=== PATIENT | female | born 1950 | race Two or more races ===

== ENCOUNTER 2023-12-23 14:03 | Inpatient (IN) | payer OTHER, MEDICAID ==
[~2023-12-23] VITALS: Ht 165.1 cm; Wt 73.7 kg
[2023-12-23 15:02] LABS: Basophils # (auto) 0.1 10 ^3/uL (0-0.2); Eosinophils # (auto) 0.2 10 ^3/uL (0-0.8); Hematocrit 32.1 % (36.0-46.0); Neutrophils # (auto) 4.1 10 ^3/uL (1.6-8.6); Red Blood Cells 3.98 10^6/uL (4.0-5.20); Red Cell Distribution Width 17.9 % (11.8-14.3)
[2023-12-23 15:04] LABS: Basophils % (auto) 0.9 % (0.0-2.0); Eosinophils % (auto) 2.8 % (0.0-7.0); Lymphocytes # (auto) 1.6 10 ^3/uL (0.4-5.4); Mean Corpuscular Hemoglobin 25.2 pg (28.0-32.0); Mean Corpuscular Hgb Conc. 31.3 g/dL (32.0-36.0); Mean Corpuscular Volume 80.5 fL (80.0-100.0); Monocytes % (auto) 14.7 % (0.0-12.0); Neutrophils % (auto) 58.6 % (37.0-80.0); Nucleated Red Blood Cells % 0.1 %
[2023-12-23 15:12] LABS: Chloride 103 mmol/L (98-107); Potassium 5.4 mmol/L (3.5-5.1); Sodium 136 mmol/L (136-145)
[2023-12-23 15:13] LABS: Anion Gap 8 (5-15); Calcium 9.1 mg/dL (8.7-10.4); Carbon Dioxide 25 mmol/L (20-30)
[2023-12-23 15:18] LABS: BUN/Creatinine Ratio 5.6 (10.0-20.0); Blood Urea Nitrogen 51 mg/dL (9-23); Glucose 117 mg/dL (74-106)
[2023-12-23] MEDS: SODIUM ZIRCONIUM CYCL 10 GM PAK PO ONE (16:14)
[2023-12-23] MEDS: FUROSEMIDE 20 MG/2 ML VIAL IV ONE (16:14)
[2023-12-23] MEDS: CALCIUM GLUC 1,000mg/50ml-NS 50 ML IV ONE (16:15)
[2023-12-23 17:31] VITALS: PULSE 68; RESP 19; O2SAT 91
[2023-12-23 19:45] VITALS: PULSE 68; RESP 19; O2SAT 91
[2023-12-23] MEDS ORDERED: ONDANSETRON HCL 4 MG/2 ML VIAL IV PRN (23:30)
[2023-12-23] MEDS ORDERED: HYDROcodone-ACET 5/325MG TAB PO PRN (23:30)
[2023-12-23] MEDS ORDERED: NITROGLYCERIN 0.4 MG SL TAB SL PRN (23:30)
[2023-12-23] MEDS ORDERED: MORPHINE SULFATE INJ 2 MG/ml SYRG IV PRN (23:30)
[2023-12-23] MEDS ORDERED: ALBUTEROL SULF 2.5 MG/0.5ML(0.5%) NEB SOLN NEB PRN (23:30)
[2023-12-23] MEDS ORDERED: IPRATROPIUM BROM 0.5 MG/2.5ML INH SOL NEB PRN (23:30)
[2023-12-23] MEDS ORDERED: ACETAMINOPHEN 325 MG TAB PO PRN (23:30)
[2023-12-23 23:32] VITALS: O2SAT 93
[2023-12-23 23:40] VITALS: BP 134/55; PULSE 70; RESP 18; TEMP 97.8; O2SAT 93
[2023-12-24] VITALS (13 sets, daily range): BP systolic 145–166; BP diastolic 43–70; PULSE 78–87; RESP 16–20; TEMP 97.8–99; O2SAT 94–100
[2023-12-24] MEDS: hydrALAZINE HCL 20 MG/ML VL IV PRN (02:14)
[2023-12-24] MEDS ORDERED: DEXTROSE (50%) 50ML SYRG IV PRN (03:30)
[2023-12-24 04:16] LABS: Basophils # (auto) 0.1 10 ^3/uL (0-0.2); Eosinophils # (auto) 0.2 10 ^3/uL (0-0.8); Hemoglobin 10.2 g/dL (12.2-16.2); Lymphocytes # (auto) 1.7 10 ^3/uL (0.4-5.4); Neutrophils # (auto) 4.9 10 ^3/uL (1.6-8.6)
[2023-12-24 04:18] LABS: Basophils % (auto) 1.1 % (0.0-2.0); Eosinophils % (auto) 2.9 % (0.0-7.0); Lymphocytes % (auto) 21.5 % (10.0-50.0); Mean Corpuscular Hemoglobin 25.1 pg (28.0-32.0); Mean Corpuscular Hgb Conc. 31.7 g/dL (32.0-36.0); Monocytes # (auto) 1.1 10 ^3/uL (0-1.3); Monocytes % (auto) 13.3 % (0.0-12.0); Neutrophils % (auto) 61.2 % (37.0-80.0); Red Blood Cells 4.05 10^6/uL (4.0-5.20); Red Cell Distribution Width 18.1 % (11.8-14.3)
[2023-12-24 04:24] LABS: Chloride 103 mmol/L (98-107); Potassium 5.1 mmol/L (3.5-5.1); Sodium 135 mmol/L (136-145)
[2023-12-24 04:25] LABS: Anion Gap 8 (5-15); Carbon Dioxide 24 mmol/L (20-30)
[2023-12-24 04:26] LABS: Calcium 8.9 mg/dL (8.7-10.4)
[2023-12-24 04:30] LABS: BUN/Creatinine Ratio 4.8 (10.0-20.0); Blood Urea Nitrogen 47 mg/dL (9-23); Glucose 128 mg/dL (74-106)
[2023-12-24 04:33] LABS: COVID19 ANTIGEN SOFIA FIA POSITIVE (NEGATIVE)
[2023-12-24] MEDS ORDERED: ASPI-498 OR (05:48)
[2023-12-24] MEDS ORDERED: INSLANTI SC (05:48)
[2023-12-24] MEDS ORDERED: METO25TA93 PO (05:48)
[2023-12-24] MEDS ORDERED: B-CO-5 OR (05:48)
[2023-12-24] MEDS ORDERED: MET50T PO (05:48)
[2023-12-24] MEDS ORDERED: FERR325T24 PO (05:48)
[2023-12-24] MEDS ORDERED: LOS25T (05:48)
[2023-12-24] MEDS ORDERED: FURO20TA3 PO (05:48)
[2023-12-24] MEDS ORDERED: AMLO1TAB22 PO ×2 (05:48)
[2023-12-24] MEDS: ACCU-CHEK COMFORT CURVE STRIP VI SCH (06:29)
[2023-12-24] MEDS: InsuLIN REG 1unit/0.01ml Soln (100units/ml) SC SCH (06:29)
[2023-12-24] MEDS: ASPirin 81 mg TAB PO SCH (08:34)
[2023-12-24] MEDS: HEPARIN SODIUM (PORCINE) 5000 UNITS/ML 1ML VIAL SC SCH (08:35)
[2023-12-24] MEDS: ATORVASTATIN 20 MG TAB PO SCH ×2 (22:10→23:00)
[2023-12-24] MEDS ORDERED: LORazepam 2MG/ML-1ML VIAL IV PRN (23:00)
[2023-12-25] VITALS (8 sets, daily range): BP systolic 113–163; BP diastolic 58–96; PULSE 75–94; RESP 16–18; TEMP 97.5–98.4; O2SAT 93–99
[2023-12-25 07:13] LABS: Basophils # (auto) 0.1 10 ^3/uL (0-0.2); Basophils % (auto) 1.3 % (0.0-2.0); Eosinophils # (auto) 0.2 10 ^3/uL (0-0.8); Hemoglobin 10.3 g/dL (12.2-16.2); Lymphocytes # (auto) 1.5 10 ^3/uL (0.4-5.4); Monocytes # (auto) 0.8 10 ^3/uL (0-1.3); Neutrophils # (auto) 3.3 10 ^3/uL (1.6-8.6)
[2023-12-25 07:15] LABS: Eosinophils % (auto) 3.3 % (0.0-7.0); Hematocrit 32.4 % (36.0-46.0); Mean Corpuscular Hemoglobin 25.2 pg (28.0-32.0); Mean Corpuscular Hgb Conc. 31.8 g/dL (32.0-36.0); Mean Corpuscular Volume 79.2 fL (80.0-100.0); Monocytes % (auto) 14.4 % (0.0-12.0); Red Blood Cells 4.09 10^6/uL (4.0-5.20); Red Cell Distribution Width 17.5 % (11.8-14.3); White Blood Cell 5.9 10^3/uL (4.4-10.8)
[2023-12-25 07:33] LABS: Anion Gap 14 (5-15); Carbon Dioxide 23 mmol/L (20-30); Chloride 101 mmol/L (98-107); Potassium 4.7 mmol/L (3.5-5.1); Sodium 138 mmol/L (136-145)
[2023-12-25 07:35] LABS: Calcium 9.1 mg/dL (8.7-10.4)
[2023-12-25 07:39] LABS: BUN/Creatinine Ratio 4.7 (10.0-20.0); Glucose 103 mg/dL (74-106)
[2023-12-25 07:42] LABS: Blood Urea Nitrogen 31 mg/dL (9-23)
[2023-12-25] MEDS ORDERED: LOSA-534 PO (08:37)
[2023-12-25] MEDS ORDERED: METO25TA5 PO (08:37)
[2023-12-25] MEDS ORDERED: INSU100I70 SC (08:37)
[2023-12-25] MEDS ORDERED: FERR324T4 PO (08:37)
[2023-12-25] MEDS ORDERED: ATOR40TA52 PO (08:37)
[2023-12-25] MEDS ORDERED: HYDR50TA47 PO (08:37)
[2023-12-25] MEDS ORDERED: ISOS1TAB28 PO (08:37)
[2023-12-25] MEDS ORDERED: FURO40TA4 PO (08:37)
[2023-12-25] MEDS ORDERED: AMLO1TAB23 PO (08:37)
[2023-12-25] MEDS: METOPROLOL TARTRATE 25 MG TAB PO SCH (11:50)
[2023-12-25] MEDS: FUROSEMIDE 40 MG TAB PO SCH (11:50)
[2023-12-25] MEDS: amLODIPine BESYLATE 5 MG TAB PO SCH (11:51)
[2023-12-25] MEDS: hydrALAZINE HCL 25 MG TAB PO SCH (13:32)
[2023-12-25] MEDS ORDERED: ACYCLOVIR 5MG/KG Q8HR PER RX 0 ML IV SCH (18:00)
[2023-12-25] MEDS: ACYCLOVIR SOD IV SCH (20:22)
[2023-12-25] MEDS: D5W 5% IV SCH (20:22)
[2023-12-25 22:48] LABS: Urine Bacteria None Seen /hpf (None Seen)
[2023-12-25 23:05] LABS: Urine Blood TRACE /uL (Negative); Urine Clarity Clear (Clear); Urine Color Light-Yellow (Yellow); Urine Protein, UAD 3+ (Negative); Urine Specific Gravity 1.012 (1.001-1.035); Urine Urobilinogen Normal (Negative); Urine WBC 40 /hpf (0 - 5); Urine pH 7.5 (5.0-9.0)
[2023-12-26] VITALS (10 sets, daily range): BP systolic 105–156; BP diastolic 30–77; PULSE 70–77; RESP 17–19; TEMP 98.2–98.7; O2SAT 91–96
[2023-12-26 05:51] LABS: Basophils # (auto) 0.1 10 ^3/uL (0-0.2); Eosinophils # (auto) 0.2 10 ^3/uL (0-0.8); Hematocrit 31.2 % (36.0-46.0); Neutrophils # (auto) 3.4 10 ^3/uL (1.6-8.6); White Blood Cell 6.5 10^3/uL (4.4-10.8)
[2023-12-26 05:52] LABS: Chloride 102 mmol/L (98-107); Sodium 137 mmol/L (136-145)
[2023-12-26 05:53] LABS: Anion Gap 9 (5-15); Calcium 9.4 mg/dL (8.7-10.4); Carbon Dioxide 26 mmol/L (20-30)
[2023-12-26 05:55] LABS: Eosinophils % (auto) 2.4 % (0.0-7.0); Hemoglobin 10.1 g/dL (12.2-16.2); Lymphocytes # (auto) 1.8 10 ^3/uL (0.4-5.4); Lymphocytes % (auto) 28.4 % (10.0-50.0); Mean Corpuscular Hemoglobin 25.5 pg (28.0-32.0); Mean Corpuscular Hgb Conc. 32.2 g/dL (32.0-36.0); Mean Corpuscular Volume 79.3 fL (80.0-100.0); Monocytes % (auto) 15.6 % (0.0-12.0); Neutrophils % (auto) 52.6 % (37.0-80.0); Red Blood Cells 3.94 10^6/uL (4.0-5.20); Red Cell Distribution Width 18.1 % (11.8-14.3)
[2023-12-26 05:58] LABS: BUN/Creatinine Ratio 5.3 (10.0-20.0); Glucose 112 mg/dL (74-106)
[2023-12-26 06:05] LABS: Blood Urea Nitrogen 45 mg/dL (9-23)
[2023-12-26 09:38] LABS: Hepatitis B Surface Antibody Positive (Negative)
[2023-12-26 09:50] LABS: Hepatitis B Surface Antigen Negative (Negative)
[2023-12-26] MEDS ORDERED: SODIUM CHL 0.9% 1000 ML BAG XX ONE (11:00)
[2023-12-26] MEDS ORDERED: ACYC400T16 PO (16:52)
[2023-12-26] MEDS: EPOETIN ALFA-EPBX 10,000 UNIT/1ML VIAL SC ONE (21:35)
[2023-12-27] VITALS (7 sets, daily range): BP systolic 129–151; BP diastolic 57–62; PULSE 79–89; RESP 18; TEMP 97.3–98.2; O2SAT 94–95
[2023-12-27 05:52] LABS: Basophils # (auto) 0.1 10 ^3/uL (0-0.2); Eosinophils # (auto) 0.1 10 ^3/uL (0-0.8); Lymphocytes # (auto) 1.8 10 ^3/uL (0.4-5.4); Monocytes # (auto) 0.9 10 ^3/uL (0-1.3); Neutrophils # (auto) 3.2 10 ^3/uL (1.6-8.6); Nucleated Red Blood Cells % 0.1 %
[2023-12-27 05:56] LABS: Basophils % (auto) 1.2 % (0.0-2.0); Eosinophils % (auto) 2.2 % (0.0-7.0); Hematocrit 31.8 % (36.0-46.0); Hemoglobin 10.4 g/dL (12.2-16.2); Lymphocytes % (auto) 29.5 % (10.0-50.0); Mean Corpuscular Hemoglobin 25.8 pg (28.0-32.0); Mean Corpuscular Hgb Conc. 32.6 g/dL (32.0-36.0); Mean Corpuscular Volume 79.1 fL (80.0-100.0); Neutrophils % (auto) 52.1 % (37.0-80.0); Red Blood Cells 4.01 10^6/uL (4.0-5.20); Red Cell Distribution Width 17.9 % (11.8-14.3); White Blood Cell 6.1 10^3/uL (4.4-10.8)
[2023-12-27 06:11] LABS: Anion Gap 7 (5-15); Carbon Dioxide 28 mmol/L (20-30); Chloride 101 mmol/L (98-107); Potassium 4.6 mmol/L (3.5-5.1); Sodium 136 mmol/L (136-145)
[2023-12-27 06:12] LABS: Calcium 9.6 mg/dL (8.7-10.4)
[2023-12-27 06:17] LABS: BUN/Creatinine Ratio 4.2 (10.0-20.0); Glucose 127 mg/dL (74-106)
[2023-12-27 06:20] LABS: Blood Urea Nitrogen 28 mg/dL (9-23)
== END 2023-12-27 18:45 | disposition home or self-care (01) | DRG 64 ==
LOC: ER 14:03 → EDBD 14:03 → TELE 23:30 → TELE-EAST 12-24 04:40
PROVIDERS: ADMIT Nurse Practitioner Family; ATTEND Nurse Practitioner Family
PROC: 5A1D70Z Performance of Urinary Filtration, Intermittent, Less than 6 Hours Per Day (ICD-10-PCS; principal; 2023-12-24)
PROC: 5A1D70Z Performance of Urinary Filtration, Intermittent, Less than 6 Hours Per Day (ICD-10-PCS; 2023-12-26)
DX: I63.9 Cerebral infarction, unspecified (principal); J12.82 Pneumonia due to coronavirus disease 2019; U07.1 COVID-19; N18.6 End stage renal disease; I13.2 Hypertensive heart and chronic kidney disease with heart failure and with stage 5 chronic kidney disease, or end stage renal disease; N25.81 Secondary hyperparathyroidism of renal origin; T85.611A Breakdown (mechanical) of intraperitoneal dialysis catheter, initial encounter; I69.354 Hemiplegia and hemiparesis following cerebral infarction affecting left non-dominant side; E87.1 Hypo-osmolality and hyponatremia; E87.5 Hyperkalemia; B02.9 Zoster without complications; D63.1 Anemia in chronic kidney disease; E11.22 Type 2 diabetes mellitus with diabetic chronic kidney disease; E11.42 Type 2 diabetes mellitus with diabetic polyneuropathy; E78.5 Hyperlipidemia, unspecified; I25.10 Atherosclerotic heart disease of native coronary artery without angina pectoris; I50.9 Heart failure, unspecified; Z83.3 Family history of diabetes mellitus; Z85.528 Personal history of other malignant neoplasm of kidney; Z86.19 Personal history of other infectious and parasitic diseases; I25.2 Old myocardial infarction; Z79.4 Long term (current) use of insulin; Z79.82 Long term (current) use of aspirin; Z79.899 Other long term (current) drug therapy; Z88.0 Allergy status to penicillin; Z99.2 Dependence on renal dialysis; Y84.1 Kidney dialysis as the cause of abnormal reaction of the patient, or of later complication, without mention of misadventure at the time of the procedure; Y92.89 Other specified places as the place of occurrence of the external cause
CPT/HCPCS: 36415; 70450; 71045; 80048; 81001; 82962; 84484; 85025; 86706; 87081; 87340; 87426; 90935; 93306; 93886; 96365; 96375; G0378; J1642; J1815; J7060

== ENCOUNTER 2024-06-08 06:17 | Day surgery (SDC) | payer OTHER, MEDICAID ==
[~2024-06-08] VITALS: Ht 165.1 cm; Wt 71.2 kg
[~2024-06-08 06:17] MED LIST: ACYC400T16 PO; AMLO1TAB23 PO; ASPI-498 OR; ATOR40TA52 PO; B-CO-5 OR; FERR324T4 PO; FURO40TA4 PO; HYDR50TA47 PO; INSLANTI SC; ISOS1TAB28 PO; LOSA-534 PO
[2024-06-08] MEDS ORDERED: BUPIVACAINE 0.5% P/F INJ 10 ML VIAL ONE (06:34)
[2024-06-08] MEDS ORDERED: LIDOCAINE 1% HCL (LOCAL ANESTH.) INJ 20ML MDV ONE (06:35)
[2024-06-08] MEDS ORDERED: HEPARIN 1,000 UNITS/ml 1ML VIAL ONE (06:35)
[2024-06-08] MEDS ORDERED: HEPARIN SODIUM (PORCINE) 5000 UNITS/ML 1ML VIAL ONE ×2 (06:37→06:53)
[2024-06-08] MEDS ORDERED: SUCCINYLCHOLINE CHLORIDE 20 MG/ML 10ML VIAL IV ONE (06:42)
[2024-06-08] MEDS ORDERED: fentaNYL CITRATE 100 MCG/2 ML VL ONE ×2 (06:46→07:43)
[2024-06-08] MEDS ORDERED: PROPOFOL 10 MG/ML 20 ML IV ONE (06:48)
[2024-06-08] MEDS ORDERED: ceFAZolin 2 GM/D5W100ml 100 ML IV ONE (07:14)
[2024-06-08] MEDS: HEPARIN SODIUM (PORCINE) 5000 UNITS/ML 1ML VIAL SC ONE (07:15)
[2024-06-08] MEDS ORDERED: ONDANSETRON HCL 4 MG/2 ML VIAL ONE (07:46)
[2024-06-08] MEDS ORDERED: SUGAMMADEX 200mg/2ml Vial (100MG/ML) IV ONE (08:13)
[2024-06-08 08:32] VITALS: PULSE 82; RESP 12; TEMP 97.7; O2SAT 95
[2024-06-08] MEDS ORDERED: ALBUTEROL SULF 2.5 MG/0.5ML(0.5%) NEB SOLN ONE (09:13)
[2024-06-08 09:18] VITALS: O2SAT 95
[2024-06-08] MEDS: ALBUTEROL SULF 2.5 MG/0.5ML(0.5%) NEB SOLN NEB ONE (09:18)
[2024-06-08 09:19] VITALS: PULSE 72; PULSE 75; RESP 16; O2SAT 95; O2SAT 97
[2024-06-08 09:37] VITALS: BP 141/58; PULSE 74; RESP 19; O2SAT 93
--- NOTE | 2024-06-08 11:25 | DVHOP ---
DATE OF SURGERY: 06/08/2024 PREOPERATIVE DIAGNOSIS: Malfunctioning peritoneal dialysis catheter. POSTOPERATIVE DIAGNOSIS: Malfunctioning peritoneal dialysis catheter. PROCEDURES: Laparoscopic lysis of adhesions and revision of peritoneal dialysis catheter. SURGEON: Emanuel Hayes MD BREAKDOWN MAN: None. ANESTHESIOLOGIST: Dr. Bishop. ANESTHESIA: General by means of endotracheal intubation. INTRAOPERATIVE FINDINGS: * Significant intraluminal catheter debris, fibrin/thrombus. * Adhesions involving the small bowel against the pelvic region, obliterating the pelvic cul-de-sac. * Displaced peritoneal dialysis catheter located in the mid lower abdominal region, enveloped with small bowel. ESTIMATED BLOOD LOSS: Minimal. INTRAVENOUS FLUIDS: Per anesthesia charting. Urine output not recorded given Kendrick catheter was not inserted. DRAINS: None. IMPLANTS: None. SPECIMENS: None. COMPLICATIONS: None. Procedure well tolerated and transferred to recovery room in stable condition. INDICATION FOR PROCEDURE: The patient is an unfortunate 73-year-old female with history of end-stage renal disease, previously on peritoneal dialysis, recently transitioning to hemodialysis secondary to nonfunctioning peritoneal dialysis catheter. Based on the above-mentioned information, she was recommended to undergo laparoscopic revision of the peritoneal dialysis catheter. She was made aware that intraoperative findings would dictate the end result of the procedure. The procedure, risks and benefits were explained in a detailed and extensive fashion. All questions were answered. She understood and agreed to proceed. DESCRIPTION OF PROCEDURE: The patient was taken to the operating room. She was placed in the dorsal decubitus position on the operating table. Once adequate anesthesia was achieved, both arms were tucked to her side, paying careful attention on providing adequate positioning as well as padding to prevent any potential injuries. The peritoneal dialysis catheter was inspected. The exchange tubing demonstrated significant debris within the lumen. It was immediately exchanged. The catheter was flushed under sterile conditions, completely clearing the external portion of the catheter. At this time, the abdomen and pelvis were widely prepped and draped in the usual sterile fashion, including the catheter. The catheter was excluded from the rest of the sterile field by placing the catheter on the sterile towel towards the left side of the patient, we noted to be tested later. My attention was directed towards the periumbilical region where local anesthesia consisting of 1% lidocaine with 0.5% Marcaine was infiltrated. The abdominal wall was retracted anteriorly by means of towel clamps and a Veress needle was inserted into the abdominal cavity. Pneumoperitoneum of 15 mmHg was achieved. My attention was directed towards the right upper quadrant region where local anesthesia was injected over the area of the previous scar. A 5 mm trocar was placed and a 5 mm 30-degree laparoscope was inserted into the abdominal cavity. A thorough survey of the abdominal cavity did not reveal any evidence of injury or bleeding upon entry. The Veress needle was removed under direct laparoscopic visualization. The catheter was observed to be within the lower mid abdomen, enveloped with small bowel and there was significant debris within the internal aspect of the catheter that was visualized. The internal cuff was in the peritoneal cavity. It appeared to be shaved previous to insertion. My attention was directed towards the left side of the abdomen where a 5 mm and an 8 mm trocars were placed with preemptive local anesthesia as well as under direct laparoscopic visualization. At this time, the catheter was retrieved from the mid lower abdomen and inspected, identifying a significant amount of internal debris including the distal previously nonvisualized portion of the catheter. At this time, the debris was milked distally using the Spimeige grasper, successfully removing all fibrin and thrombus from the catheter and retrieved. The catheter was forcefully flushed with sterile saline solution, demonstrating excellent patency. I changed gloves and then proceeded to place the patient in the Trendelenburg position, exposing the pelvic cul-de-sac. There were adhesions involving small intestine against the pelvic region, obliterating the pelvic cul-de-sac. The adhesions were very loose and easily dissected with EndoShears, exposing the pelvic cul-de-sac and successfully mobilizing the small bowel without injury to involved structures. The peritoneal dialysis catheter was attempted to be placed in the pelvic cul-de-sac. Unfortunately, the catheter was not of adequate length and therefore could not be placed optimally and completely within pelvic cul-de-sac. The pneumoperitoneum was evacuated and the patient was placed in the neutral position. The catheter was connected to a sterile cystoscopy line, which was in turn connected to a 1 liter of sterile saline solution. The fluid was instilled upon gravity with observing excellent flow. Once the entire liter was instilled into the abdominal cavity, the bag was placed on the floor, observing excellent return, once again without obstructive flow. Approximately 800 mL of pink fluid was obtained. This demonstrated excellent function of the peritoneal dialysis catheter. At this time, the pneumoperitoneum was achieved again and the abdominal cavity was inspected. There was no evidence of active bleeding or injury. The catheter remained in the pelvis. Pneumoperitoneum was evacuated. The laparoscopic equipment was removed from the patient. The wounds were washed and dried. The skin was closed with 4-0 Monocryl in subcuticular fashion. Sterile dressings were applied. The catheter was locked with 2500 units of heparin solution. The patient tolerated well procedure. There were no complications. She was successfully extubated in the operating room and transferred to recovery room in stable condition. MD STACEY Valencia/MARYBETH/GLORIA TID: [id number] RECEIPT: [id number]
== END 2024-06-08 09:52 | disposition home or self-care (01) ==
LOC: SUR 06:17
DX: T85.611A Breakdown (mechanical) of intraperitoneal dialysis catheter, initial encounter (principal); K66.0 Peritoneal adhesions (postprocedural) (postinfection); I12.0 Hypertensive chronic kidney disease with stage 5 chronic kidney disease or end stage renal disease; E11.22 Type 2 diabetes mellitus with diabetic chronic kidney disease; N18.6 End stage renal disease; E78.5 Hyperlipidemia, unspecified; E11.40 Type 2 diabetes mellitus with diabetic neuropathy, unspecified; I25.10 Atherosclerotic heart disease of native coronary artery without angina pectoris; I25.2 Old myocardial infarction; Z88.0 Allergy status to penicillin; Z87.891 Personal history of nicotine dependence; Z79.82 Long term (current) use of aspirin; Z79.4 Long term (current) use of insulin; Z98.41 Cataract extraction status, right eye; Z99.2 Dependence on renal dialysis; Z86.73 Personal history of transient ischemic attack (TIA), and cerebral infarction without residual deficits; Y83.8 Other surgical procedures as the cause of abnormal reaction of the patient, or of later complication, without mention of misadventure at the time of the procedure
CPT/HCPCS: 49325; 82962; 86850; 86900; 86901; J0330; J1644; J2003; J2405; J2704; J3010; J3490; J7030

== ENCOUNTER 2024-06-27 18:10 | Emergency (ER) | payer OTHER, MEDICAID ==
[~2024-06-27] VITALS: Ht 162.6 cm; Wt 75.0 kg
--- NOTE | 2024-06-27 18:48 | ED.PDOC ---
GI ASSESSMENT HPI Comments HPI: Poor Historian. 73-year-old female presents to emergency department for evaluation of her peritoneal dialysis. Peritoneal dialysis was placed last week. Has never been used at all. She had it checked this past and it was working fine. This peritoneal dialysis was placed recently at this facility. She has been receiving dialysis through her right upper chest port catheter most recently yesterday. Today she went to get her peritoneal dialysis checked and they noticed that there is blood in the tube itself. They sent her here for further evaluation. Patient is on aspirin denies any other blood thinners. Patient has minimal abdominal discomfort. Past Medcial History: Past Surgical History: REVIEW OF SYSTEMS: CONSTITUTIONAL: Denies acute: fever, diaphoresis, chills, generalized weakness. HEAD: Denies acute: headache, photophobia Eyes: Denies acute: Double vision, vision loss, eye pain, eye discharge. EARS: Denies acute: tinnitus, hearing loss, ear discharge, ear pain, THROAT: Denies acute: sore throat, swelling, difficulty swallowing , pain with swallowing, change in voice. NECK: Denies acute: neck pain, neck swelling, stiff neck. HEART: Denies acute : chest pain, palpitations, LUNGS: Denies acute: SOB, wheezing, cough, hemoptysis ABDOMEN: Denies acute: abdominal pain, Nausea, Vomiting, diarrhea, melena , hematemesis, hematochezia SKIN: Denies acute: rash, redness, lesions, itchiness. EXTREMITIES: Denies acute: calf pain, numbness, tingling, weakness, denies pain in extremity. Denies acute: Low back pain. Neuro: Denies acute: focal neurological deficit, motor or sensory focal neurological deficit, tremors, seizure like activity, confusion, dizziness, change in mental status, loss of bowel or bladder function, cauda equina like symptoms. : Denies acute: dysuria, hematuria, flank pain, increase in urinary frequency. PSYCH: Denies acute: hallucination, suicidal ideation, homicidal ideation. FEMALE: Denies acute: abnormal vaginal bleeding, foul odor, unusual discharge. PHYSICAL EXAM: General: no acute distress, awake and alert. Head: normocephalic, atraumatic. Neck: supple, trachea is midline, no swelling. Throat: Normal phonation. Eyes:, no erythema, no purulent discharge, no proptosis, no icterus. Heart: regular rate, regular rhythm, no significant murmur appreciated. Lungs: no apparent respiratory distress, Able to speak in full sentences. No wheezing, no rhonchi, no crackles. No stridors Clear to auscultation bilaterally. Abdomen: Minimal generalized tender to palpation, non distended, soft, no guard ing, no rebound, + bowel sounds. Noted peritoneal dialysis tube with some presence of dark pink/blood in the tube itself. Neuro: Awake, Alert, oriented to name, self, situation, follows commands GCS=15. Speech is normal. Skin: no petechia, no purpura, no cyanosis, non-pale, not jaundice. Lower extremities: --trace - Pitting edema no deformity, no focal swelling, no calf TTP. Makes eye contact. moves all four extremities. Face: no apparent facial droop. Ambulating in the ED independently. Chief Complaint: Tube Replacement Time Seen by MD: 18:43 Primary Care Provider: MELISSA Reviewed Notes: Nurses Notes Allergies: Coded Allergies: Penicillins (Verified Allergy, Unknown, 12/23/23) Home Meds Active Scripts Acyclovir (ZOVIRAX TABLET) 400 Mg Tb, 0.5 TAB PO BID for 6 Days, #6 TAB 3 Refills Prov:KITTY COLES MD 12/26/23 Reported Medications Prednisolone Acetate (Ophth) (Pred Forte) 1 % Sayda, 1 % OP, ML 06/27/24 Moxifloxacin Hydrochloride (Moxifloxacin) 0.5 % Leroy, 0.5 % OP, LEROY 06/27/24 Insulin Glargine (Lantus) 100 Unit/Ml Inj, 20 UNIT SC, INJ 06/05/24 Amlodipine Besylate (Amlodipine Besylate) 10 Mg Tab, 10 MG PO BID, TAB 06/05/24 Hydralazine Hcl (Hydralazine Hcl) 50 Mg Tab, 50 MG PO TID for 30 Days, MG 12/25/23 Atorvastatin Calcium (ATORVASTATIN CALCIUM) 40 Mg Tab, 1 TAB PO DAILY, #30 TAB 5 Refills 12/25/23 Isosorbide Mononitrate (Isosorbide Mononitrate Er) 30 Mg Tab, 30 MG PO for 30 Days, MG 12/25/23 Losartan Potassium (Losartan Potassium) 50 Mg Tab, 1 TAB PO DAILY, #30 TAB 5 Refills 12/25/23 Ferrous Sulfate (FERROUS SULFATE) 324 Mg Tab, 100 MG PO, TAB 12/25/23 Furosemide (Furosemide) 40 Mg Tab, 1 TAB PO DAILY, #30 TAB 5 Refills 12/25/23 Aspirin (ASPIRIN 81) 81 Mg Tab, 81 MG OR, TAB 12/24/23 B-Complex W/ C & Folic Acid (Abril-Peg) Tab, 1 OR, TAB 12/24/23 Information Source: Patient Mode of Arrival: EMS Was a procedure done? Was a procedure done?: No GI differential Dx Differential Diagnosis: Other Other Differential Diagnosis DDX include Diverticulitis, colitis, gastroenteritis, acute abdomen, SBO, enteritis, constipation, volvulus, appendicitis, Gallbladder disease, choledocolithiasis, ascending cholangitis, pancreatitis, intraAbdominal mass/neoplasm, hepatitis, UTI, pylonephritis, kidney stone, aneurysm, dissection, Inflammatory bowel disease, gastroparesis, ischemic bowel, X-Ray, Labs, Meds, VS Vital Signs Date Time Temp Pulse Resp B/P (MAP) Pulse Ox O2 Delivery O2 Flow Rate FiO2 06/27/24 21:13 18 99 Room Air* 0 21 06/27/24 19:58 85 16 165/79 (107) 96 06/27/24 19:58 85 16 96 Room Air* 0 21 06/27/24 18:10 98.5 75 18 214/93 (133) 94 Lab Test 06/27/24 19:03 Range/Units White Blood Count 8.1 4.4-10.8 10^3/uL Red Blood Count 5.33 H 4.0-5.20 10^6/uL Hemoglobin 13.1 12.2-16.2 g/dL Hematocrit 41.9 36.0-46.0 % Mean Corpuscular Volume 78.7 L 80.0-100.0 fL Mean Corpuscular Hemoglobin 24.7 L 28.0-32.0 pg Mean Corpuscular Hemoglobin Concent 31.3 L 32.0-36.0 g/dL Red Cell Distribution Width 20.9 H 11.8-14.3 % Platelet Count 284 140-450 10^3/uL Mean Platelet Volume 6.3 L 6.9-10.8 fL Neutrophils (%) (Auto) 59.7 37.0-80.0 % Lymphocytes (%) (Auto) 18.5 10.0-50.0 % Monocytes (%) (Auto) 12.1 H 0.0-12.0 % Eosinophils (%) (Auto) 8.4 H 0.0-7.0 % Basophils (%) (Auto) 1.3 0.0-2.0 % Neutrophils # (Auto) 4.8 1.6-8.6 10 ^3/uL Lymphocytes # (Auto) 1.5 0.4-5.4 10 ^3/uL Monocytes # (Auto) 1.0 0-1.3 10 ^3/uL Eosinophils # (Auto) 0.7 0-0.8 10 ^3/uL Basophils # (Auto) 0.1 0-0.2 10 ^3/uL Nucleated Red Blood Cells 0.1 % Prothrombin Time 11.0 9.3-11.8 sec Prothrombin Time INR 1.04 0.9-1.15 Activated Partial Thromboplast Time 23.3 L 24.5-34.5 SEC Sodium Level 133 L 136-145 mmol/L Potassium Level 5.4 H 3.5-5.1 mmol/L Chloride Level 95 L 98-107 mmol/L Carbon Dioxide Level 28 20-31 mmol/L Anion Gap 10 5-15 Blood Urea Nitrogen 47 H 9-23 mg/dL Creatinine 8.10 H 0.550-1.02 mg/dL Glomerular Filtration Rate Calc 5 >90 mL/min BUN/Creatinine Ratio 5.8 L 10.0-20.0 Serum Glucose 280 H 74-106 mg/dL Calcium Level 10.6 H 8.7-10.4 mg/dL Total Bilirubin < 0.2 L 0.2-1.0 mg/dL Aspartate Amino Transferase (AST) 12 L 13-40 U/L Alanine Aminotransferase (ALT) 11 7-40 U/L Alkaline Phosphatase 100 46-116 U/L Total Protein 8.2 5.7-8.2 g/dL Albumin 4.4 3.2-4.8 g/dL Time of 1ST Reevaluation: 19:13 Reevaluation 1ST: Unchanged Time of 2ND Reevaluation: 20:57 (The case was discussed with the admitting team (HPI, physical exam, labs and diagnostic tests that were available at the time of disposition, ED course, treatment plan) on the phone. They agreed to come and evaluate the patient. They spoke with the surgeon who placed the peritoneal dialysis and I was informed by the nurse practitioner that the surgeon's recommendation is outpatient follow up. They also recommend treatment for her slightly elevated potassium here in the ED. they will come and see the patient here shortly. They plan on discharging the patient. Nurse practitioner Jaron) Patient Education/Counseling: Diagnosis, Treatment Family Education/Counseling: No Family Present Comments Patient presented with the above HPI.--hyperkalemia and peritoneal dialysis problem----workup was initiated. patient was found with the above mentioned diagnosis. the following medications were ordered: please refer to order lists of meds and tests obtained by myself Dr. Contreras. Patient ED course and VS have been stabilized. Patient has been reassessed in the ED and remained in a stable condition. Pertinent incidental findings were discussed with the patient and/or family. Patient/family voices understanding and is agreeable with plan. Patient has been observed in the ED adequate length of time to insure improvement/stability. Escalation of care considered: Consideration of escalation to observation or admission Patient was ADMITTED to the medicine team for further evaluation and treatment of their presentation. However I believe the admitting team discharge the patient from the ER with outpatient follow up. All the reports of any imaging studies that were ordered by myself were reviewed by myself. Departure 1 Departure Time of Disposition: 20:51 Impression: Primary Impression: Complication of peritoneal dialysis Additional Impression: Hyperkalemia Disposition: ADMITTED INPATIENT Admit to: Tele Condition: Guarded Discharged With: Self Critical Care Note Critical Care Time?: No I personally scribed for PRABHA CONTRERAS DO ([email or web address]) on 06/27/24 at 18:47. Electronically submitted by Jazz Somers ([email or web address]). PRABHA CONTRERAS DO Jun 27, 2024 18:47
[2024-06-27 19:16] LABS: Basophils # (auto) 0.1 10 ^3/uL (0-0.2); Basophils % (auto) 1.3 % (0.0-2.0); Eosinophils # (auto) 0.7 10 ^3/uL (0-0.8); Eosinophils % (auto) 8.4 % (0.0-7.0); Hematocrit 41.9 % (36.0-46.0); Hemoglobin 13.1 g/dL (12.2-16.2); Lymphocytes # (auto) 1.5 10 ^3/uL (0.4-5.4); Lymphocytes % (auto) 18.5 % (10.0-50.0); Mean Corpuscular Hemoglobin 24.7 pg (28.0-32.0); Mean Corpuscular Hgb Conc. 31.3 g/dL (32.0-36.0); Mean Corpuscular Volume 78.7 fL (80.0-100.0); Monocytes % (auto) 12.1 % (0.0-12.0); Neutrophils # (auto) 4.8 10 ^3/uL (1.6-8.6); Neutrophils % (auto) 59.7 % (37.0-80.0); Nucleated Red Blood Cells % 0.1 %; Platelet Count (auto) 284 10^3/uL (140-450); Red Blood Cells 5.33 10^6/uL (4.0-5.20); White Blood Cell 8.1 10^3/uL (4.4-10.8)
[2024-06-27 19:17] LABS: Red Cell Distribution Width 20.9 % (11.8-14.3)
[2024-06-27] MEDS ORDERED: PRED1SUS4 OP (19:21)
[2024-06-27] MEDS ORDERED: MOXI0.5D9 OP (19:21)
[2024-06-27 19:36] LABS: INR 1.04 (0.9-1.15); Partial Thromboplastin Time 23.3 SEC (24.5-34.5)
--- NOTE | 2024-06-27 19:38 | DVH ---
EXAM: CT Abdomen and Pelvis Without Intravenous Contrast CLINICAL INDICATION: N TECHNIQUE: Axial computed tomography images of the abdomen and pelvis without intravenous contrast. This CT exam was performed using one or more of the following dose reduction techniques: automated exposure control, adjustment of the mA and/or kV according to patient size, and/or use of iterative r econstruction technique. RADIATION DOSE: CTDlvol= 8.3 mGy, DLP= 449.81 mGy-cm COMPARISON: None FINDINGS: LUNG BASES: Right base atelectasis. ABDOMEN: LIVER: Hepatomegaly. GALLBLADDER AND BILE DUCTS: Unremarkable. No calcified stones. No ductal dilation. PANCREAS: Unremarkable. No ductal dilation. SPLEEN: Unremarkable. No splenomegaly. ADRENALS: Unremarkable. No mass. KIDNEYS AND URETERS: Right nephrectomy. STOMACH AND BOWEL: Mild volume fecal retention in the colon consistent with constipation. No obstru ction. No mucosal thickening. PELVIS: APPENDIX: No findings to suggest acute appendicitis. BLADDER: Unremarkable. No stones. REPRODUCTIVE: Unremarkable as visualized. ABDOMEN and PELVIS: INTRAPERITONEAL SPACE: Unremarkable. No free air. No significant fluid collection. BONES/JOINTS: No acute fracture. No dislocation. SOFT TISSUES: Umbilical hernia containing fat. VASCULATURE: Scattered calcified atherosclerotic disease of aorta. No abdominal aortic aneurysm. LYMPH NODES: Unremarkable. No enlarged lymph nodes. TUBES, LINES AND DEVICES: Peritoneal dialysis catheter with the distal tip in the pelvic cavity. OTHER FINDINGS: Ascities. . . . IMPRESSION: 1. Hepatomegaly. 2. Ascities. 3. Umbilical hernia containing fat. 4. Mild volume fecal retention in the colon consistent with constipation. HS:Y
[2024-06-27 19:58] VITALS: BP 165/79; PULSE 85; RESP 16; O2SAT 96
[2024-06-27 20:04] LABS: Alanine Aminotransferase 11 U/L (7-40); Albumin 4.4 g/dL (3.2-4.8); Alkaline Phosphatase 100 U/L (46-116); Anion Gap 10 (5-15); BUN/Creatinine Ratio 5.8 (10.0-20.0); Carbon Dioxide 28 mmol/L (20-31)
[2024-06-27 20:05] LABS: Total Protein 8.2 g/dL (5.7-8.2)
[2024-06-27 20:08] LABS: Aspartate Aminotransferase 12 U/L (13-40); Bilirubin, Total < 0.2 mg/dL (0.2-1.0); Blood Urea Nitrogen 47 mg/dL (9-23); Calcium 10.6 mg/dL (8.7-10.4); Chloride 95 mmol/L (98-107); Glucose 280 mg/dL (74-106); Potassium 5.4 mmol/L (3.5-5.1); Sodium 133 mmol/L (136-145)
--- NOTE | 2024-06-27 20:53 | DVHINCON2 ---
CAITIE PEÑA NP 06/27/242052: Date of service: Jun 27, [address] Contreras Reason for Consultation Medical management History of Present Illness 73-year-old female with past medical history of ESRD presents Was sent in for evaluation of her PD catheter. There is some concern over some blood clots In the catheter. Patient had the PD catheter placed by Dr. Hayes on June 08, 2024. Patient is still on hemodialysis. There are no complaints of fevers, chills, nausea, vomiting, chest pain, abdominal pain, nausea, vomiting. Past Medical History ESRD Family History: Patient reports no known family medical history. Allergies: Coded Allergies: Penicillins (Verified Allergy, Unknown, 12/23/23) Home Meds Active Scripts Acyclovir (ZOVIRAX TABLET) 400 Mg Tb, 0.5 TAB PO BID for 6 Days, #6 TAB 3 Refills Prov:KITTY COLES MD 12/26/23 Reported Medications Prednisolone Acetate (Ophth) (Pred Forte) 1 % Sayda, 1 % OP, ML 06/27/24 Moxifloxacin Hydrochloride (Moxifloxacin) 0.5 % Leroy, 0.5 % OP, LEROY 06/27/24 Insulin Glargine (Lantus) 100 Unit/Ml Inj, 20 UNIT SC, INJ 06/05/24 Amlodipine Besylate (Amlodipine Besylate) 10 Mg Tab, 10 MG PO BID, TAB 06/05/24 Hydralazine Hcl (Hydralazine Hcl) 50 Mg Tab, 50 MG PO TID for 30 Days, MG 12/25/23 Atorvastatin Calcium (ATORVASTATIN CALCIUM) 40 Mg Tab, 1 TAB PO DAILY, #30 TAB 5 Refills 12/25/23 Isosorbide Mononitrate (Isosorbide Mononitrate Er) 30 Mg Tab, 30 MG PO for 30 Days, MG 12/25/23 Losartan Potassium (Losartan Potassium) 50 Mg Tab, 1 TAB PO DAILY, #30 TAB 5 Refills 12/25/23 Ferrous Sulfate (FERROUS SULFATE) 324 Mg Tab, 100 MG PO, TAB 12/25/23 Furosemide (Furosemide) 40 Mg Tab, 1 TAB PO DAILY, #30 TAB 5 Refills 12/25/23 Aspirin (ASPIRIN 81) 81 Mg Tab, 81 MG OR, TAB 12/24/23 B-Complex W/ C & Folic Acid (Abril-Peg) Tab, 1 OR, TAB 12/24/23 Review of Systems 10 systems reviewed and negative except as per HPI Vital Signs Vital Signs Date Time Temp Pulse Resp B/P (MAP) Pulse Ox O2 Delivery O2 Flow Rate FiO2 06/27/24 19:58 85 16 165/79 (107) 96 06/27/24 19:58 Room Air* 0 21 06/27/24 18:10 98.5 Physical Exam GENERAL: Patient appearing stated age, in no acute distress. HEENT: Pupils equal and reactive to light and accommodation. Extraocular muscles intact. Mucous membranes moist. Conjunctivae pink. Anicteric sclerae. LUNGS: Bilateral air entry. No wheezes, rhonchi or rales. HEART: Regular rate and rhythm. Normal S1 and S2. ABDOMEN: BS normoactive, soft, nontender, and nondistended. No CVA tenderness. EXTREMITIES: No clubbing, cyanosis, edema. No calf tenderness. Pedal pulses 2+. NEUROLOGICAL: The patient is alert and oriented times 3. CN II-XII intact. No focal deficits on gross sensory or motor examination. Labs/Diagnostic Data Labs Test 06/27/24 19:03 Range/Units White Blood Count 8.1 4.4-10.8 10^3/uL Red Blood Count 5.33 H 4.0-5.20 10^6/uL Hemoglobin 13.1 12.2-16.2 g/dL Hematocrit 41.9 36.0-46.0 % Mean Corpuscular Volume 78.7 L 80.0-100.0 fL Mean Corpuscular Hemoglobin 24.7 L 28.0-32.0 pg Mean Corpuscular Hemoglobin Concent 31.3 L 32.0-36.0 g/dL Red Cell Distribution Width 20.9 H 11.8-14.3 % Platelet Count 284 140-450 10^3/uL Mean Platelet Volume 6.3 L 6.9-10.8 fL Neutrophils (%) (Auto) 59.7 37.0-80.0 % Lymphocytes (%) (Auto) 18.5 10.0-50.0 % Monocytes (%) (Auto) 12.1 H 0.0-12.0 % Eosinophils (%) (Auto) 8.4 H 0.0-7.0 % Basophils (%) (Auto) 1.3 0.0-2.0 % Neutrophils # (Auto) 4.8 1.6-8.6 10 ^3/uL Lymphocytes # (Auto) 1.5 0.4-5.4 10 ^3/uL Monocytes # (Auto) 1.0 0-1.3 10 ^3/uL Eosinophils # (Auto) 0.7 0-0.8 10 ^3/uL Basophils # (Auto) 0.1 0-0.2 10 ^3/uL Nucleated Red Blood Cells 0.1 % Prothrombin Time 11.0 9.3-11.8 sec Prothrombin Time INR 1.04 0.9-1.15 Activated Partial Thromboplast Time 23.3 L 24.5-34.5 SEC Sodium Level 133 L 136-145 mmol/L Potassium Level 5.4 H 3.5-5.1 mmol/L Chloride Level 95 L 98-107 mmol/L Carbon Dioxide Level 28 20-31 mmol/L Anion Gap 10 5-15 Blood Urea Nitrogen 47 H 9-23 mg/dL Creatinine 8.10 H 0.550-1.02 mg/dL Glomerular Filtration Rate Calc 5 >90 mL/min BUN/Creatinine Ratio 5.8 L 10.0-20.0 Serum Glucose 280 H 74-106 mg/dL Calcium Level 10.6 H 8.7-10.4 mg/dL Total Bilirubin < 0.2 L 0.2-1.0 mg/dL Aspartate Amino Transferase (AST) 12 L 13-40 U/L Alanine Aminotransferase (ALT) 11 7-40 U/L Alkaline Phosphatase 100 46-116 U/L Total Protein 8.2 5.7-8.2 g/dL Albumin 4.4 3.2-4.8 g/dL Assessment PD catheter evaluation ESRD on HD Hyperkalemia Plan/Recommendation Case was discussed in detail with general surgeon, Dr Hayes who placed PD catheter. Patient has been cleared to be discharged home and follow up in surgeons office. Patient is to be discharged home. [facility] [place] management has been consulted for home safety evaluation, set up follow up visit with general surgeon. Patient is to continue normally scheduled hemodialysis with customer acquisition specialist. Plan of care was discussed with the patient in person and with the patient's daughter Janet via telephone who understand and agree with the plan of care. Patient provided with strict ER precautions including but not limited to Shortness of breath, chest pain, palpitations, Dizziness, generalized weakness, Nausea, vomiting. Patient instructed to return to the emergency department for further evaluation and treatment. Patient verbalizes understanding Plan of care and ER precautions. Plan discussed with: Patient, Daughter BOYDRandellCALEB MD 06/28/24 1445: Family History: Patient reports no known family medical history. Allergies: Coded Allergies: Penicillins (Verified Allergy, Unknown, 12/23/23) Home Meds Active Scripts Acyclovir (ZOVIRAX TABLET) 400 Mg Tb, 0.5 TAB PO BID for 6 Days, #6 TAB 3 Refills Prov:KITTY COLES MD 12/26/23 Reported Medications Prednisolone Acetate (Ophth) (Pred Forte) 1 % Sayda, 1 % OP, ML 06/27/24 Moxifloxacin Hydrochloride (Moxifloxacin) 0.5 % Leroy, 0.5 % OP, LEROY 06/27/24 Insulin Glargine (Lantus) 100 Unit/Ml Inj, 20 UNIT SC, INJ 06/05/24 Amlodipine Besylate (Amlodipine Besylate) 10 Mg Tab, 10 MG PO BID, TAB 06/05/24 Hydralazine Hcl (Hydralazine Hcl) 50 Mg Tab, 50 MG PO TID for 30 Days, MG 12/25/23 Atorvastatin Calcium (ATORVASTATIN CALCIUM) 40 Mg Tab, 1 TAB PO DAILY, #30 TAB 5 Refills 12/25/23 Isosorbide Mononitrate (Isosorbide Mononitrate Er) 30 Mg Tab, 30 MG PO for 30 Days, MG 12/25/23 Losartan Potassium (Losartan Potassium) 50 Mg Tab, 1 TAB PO DAILY, #30 TAB 5 Refills 12/25/23 Ferrous Sulfate (FERROUS SULFATE) 324 Mg Tab, 100 MG PO, TAB 12/25/23 Furosemide (Furosemide) 40 Mg Tab, 1 TAB PO DAILY, #30 TAB 5 Refills 12/25/23 Aspirin (ASPIRIN 81) 81 Mg Tab, 81 MG OR, TAB 12/24/23 B-Complex W/ C & Folic Acid (Abril-Peg) Tab, 1 OR, TAB 12/24/23 Additional Comments Additional Comments Additional Comments Patient's chart reviewed and discussed with the nurse practitioner. I agree with the nurse practitioner's evaluation, documentation, assessment and care plan as outlined. CAITIE PEÑA NP Jun 27, 2024 20:53 CALEB GAUTAM MD Jun 28, 2024 14:45
[2024-06-27] MEDS ORDERED: ALBUTEROL SULF 2.5 MG/0.5ML(0.5%) NEB SOLN NEB ONE ×2 (21:00)
[2024-06-27] MEDS ORDERED: FUROSEMIDE 20 MG/2 ML VIAL IV ONE (21:00)
[2024-06-27] MEDS ORDERED: SODIUM ZIRCONIUM CYCL 10 GM PAK PO ONE (21:00)
[2024-06-27 21:13] VITALS: RESP 18; O2SAT 99
[2024-06-27] MEDS: ALBUTEROL SULF 2.5 MG/0.5ML(0.5%) NEB SOLN ONE (21:13)
== END 2024-06-28 00:32 | disposition home or self-care (01) ==
LOC: EDBD 18:10 → ER 18:18
DX: T85.898D Other specified complication of other internal prosthetic devices, implants and grafts, subsequent encounter (principal); E87.5 Hyperkalemia; Z79.82 Long term (current) use of aspirin; Z79.899 Other long term (current) drug therapy; Z88.0 Allergy status to penicillin; Z99.2 Dependence on renal dialysis; Z86.2 Personal history of diseases of the blood and blood-forming organs and certain disorders involving the immune mechanism; Y92.89 Other specified places as the place of occurrence of the external cause
CPT/HCPCS: 36415; 74176; 80053; 85025; 85610; 85730; 86850; 86900; 86901; 94640

== ENCOUNTER → 2024-09-27 | Day surgery (SDC) | payer OTHER, MEDICAID ==
[~2024-09-27] VITALS: Ht 165.1 cm; Wt 67.6 kg
[~2024-09-27] MED LIST changes: +ACCU-CHEK COMFORT CURVE STRIP VI ONE; +CALC10TA PO; +CINA30TA14 PO; +FERR1TAB17 PO; +HEPARIN SODIUM (PORCINE) 5000 UNITS/ML 1ML VIAL ONE; +HYDROmorphone HCL 2 MG/ML VL/or syr IV PRN; +HYDROmorphone HCL 2 MG/ML VL/or syr ONE; +KETAMINE 50mg/ML 1ml syringe ONE; +LANT1000 PO; +LANT500C PO; +LIDOCAINE 1% INJ PF 5ML AMP ONE; +LIDOCAINE HCL 2% TOP JELLY 5ML TOP ONE; +METO25TA93 PO; +METOCLOPRAMIDE HCL 5MG/ml INJ 2ml VIAL IV ONE; +MIDAZOLAM HCL 2MG/2ML 2ml VIAL (1mg/ml) ONE; +MORPHINE SULFATE 4 MG/ML SYR/VIAL IV PRN; +MORPHINE SULFATE INJ 2 MG/ml SYRG IV PRN; +MOXI0.5D9 OP; +ONDANSETRON HCL 4 MG/2 ML VIAL ONE; +PRED1SUS4 OP; +PROPOFOL 10 MG/ML 20 ML IV ONE; +ROCURONIUM 10MG/ML 10ML VIAL IV ONE; +SEVE800T7 PO; +SEVE800T8 PO; +SODIUM CHLORIDE LOCK 10 ML ONE; +SUCR5CHW PO; +TENA20TA PO; +[UNRECOGNIZED DRUG - CODE] PO; +[UNRECOGNIZED DRUG - CODE] PO; +[UNRECOGNIZED DRUG - CODE] PO; +ceFAZolin 2 GM/D5W50ml 50 ML IV ONE; +fentaNYL CITRATE 100 MCG/2 ML VL ONE
[2024-09-27] MEDS: LIDOCAINE 1% HCL (LOCAL ANESTH.) INJ 20ML MDV ONE ×2 (10:39)
[2024-09-27] MEDS: BUPIVACAINE 0.5% MPF INJ 30ML SDV IJ ONE (10:39)
[2024-09-27 11:01] VITALS: PULSE 67; RESP 14; TEMP 97.7; O2SAT 100
[2024-09-27] MEDS: HEPARIN SODIUM (PORCINE) 5000 UNITS/ML 1ML VIAL SC ONE (11:02)
[2024-09-27 11:20] VITALS: PULSE 65; RESP 12; O2SAT 100
[2024-09-27 11:46] VITALS: BP 150/60; PULSE 65; RESP 12; O2SAT 98
--- NOTE | 2024-09-27 11:59 | DVHOP ---
DATE OF SURGERY: 09/27/2024 DATE OF SURGERY: 09/27/2024 PREOPERATIVE DIAGNOSIS: Malfunction peritoneal dialysis catheter. POSTOPERATIVE DIAGNOSIS: Malfunction peritoneal dialysis catheter. PROCEDURE: Removal of peritoneal dialysis catheter. SURGEON: Emanuel Hayes MD. STARS ANALYTICAL LEAD: None. ANESTHESIOLOGIST: Dr. Paiz. ANESTHESIA: Local anesthesia and sedation. INTRAOPERATIVE FINDINGS: Nonfunctional thrombosed peritoneal dialysis catheter. ESTIMATED BLOOD LOSS: Minimal. IV FLUIDS: Per anesthesia charting. URINE OUTPUT: Not recorded given Kendrick catheter was not inserted. DRAINS: None. IMPLANTS: None. SPECIMENS: Peritoneal dialysis catheter. COMPLICATIONS: None. Procedure well tolerated and transferred to recovery room in stable condition. INDICATIONS FOR PROCEDURE: The patient is a 74-year-old female who has a malfunctioning peritoneal dialysis catheter. Given the above-mentioned information, she was recommended to have it removed. The procedure, risks and benefits were explained in a detailed and extensive fashion. All questions were answered. She understood and agreed to proceed. DESCRIPTION OF PROCEDURE: The patient was met in the preoperative holding area. She had no questions at this time. She was then transported to the operating room. She was placed in the dorsal decubitus position on the operating room table. Once adequate anesthesia was achieved, the abdomen and catheter were widely prepped and draped in the usual sterile fashion. My attention was directed towards the left side of the abdomen around the peritoneal dialysis catheter where local anesthesia consisting of 1% lidocaine/0.5% Marcaine was infiltrated. An elliptical incision was made around the peritoneal dialysis catheter. The dermis and subcutaneous tissue were incised circumferentially along the catheter to the level of the proximal cuff. The proximal cuff was dissected with electrocautery. The catheter was continued to be dissected distally towards the distal cuff. The distal cuff was dissected from the abdominal wall and the catheter was successfully removed. The fascial defect was closed with a #0 Vicryl in a [id number] fashion. The subcutaneous tissue and dermis were approximated with several interrupted 3-0 Vicryl sutures. The skin was closed with 4-0 Monocryl in a subcuticular fashion. The wound was washed and dried. Sterile dressings were applied. The patient tolerated well the procedure. There were no complications. She was successfully awakened in the operating room and transferred to the recovery room in stable condition. Emanuel Hayes MD WBR/ANA M TID: [id number] RECEIPT: [id number]
== END | disposition home or self-care (01) ==
LOC: SUR 09:49
DX: T85.868A Thrombosis due to other internal prosthetic devices, implants and grafts, initial encounter (principal); N18.6 End stage renal disease; I25.2 Old myocardial infarction; I25.118 Atherosclerotic heart disease of native coronary artery with other forms of angina pectoris; I12.0 Hypertensive chronic kidney disease with stage 5 chronic kidney disease or end stage renal disease; E11.22 Type 2 diabetes mellitus with diabetic chronic kidney disease; E78.00 Pure hypercholesterolemia, unspecified; Z79.899 Other long term (current) drug therapy; Z86.73 Personal history of transient ischemic attack (TIA), and cerebral infarction without residual deficits; Z99.2 Dependence on renal dialysis; Z86.59 Personal history of other mental and behavioral disorders; Z88.0 Allergy status to penicillin; Y82.8 Other medical devices associated with adverse incidents
CPT/HCPCS: 49422; 82962; 86850; 86900; 86901; 88300; J0690; J1644; J2003; J2250; J2405; J2704; J3010; J3490